=== PATIENT | female | born 1995 | race African-American/Black ===

== ENCOUNTER 2020-10-09 22:26 | Emergency (ER) | payer OTHER, SELFPAY ==
[2020-10-09 22:29] VITALS: BP 134/86; PULSE 78; RESP 18; TEMP 36.4; O2SAT 100
--- NOTE | 2020-10-09 22:56 | ED.FEMALEGU ---
HPI - Female Genitourinary General Chief complaint: Urogenital-Female Stated complaint: swollen labia Time Seen by Provider: 10/09/20 22:45 Source: patient Mode of arrival: ambulatory Limitations: no limitations History of Present Illness HPI Narrative: A 25-year-old female comes into the emergency department tonight with complaints of swollen labia bilaterally. Patient does state that they are somewhat tender and itchy. She states that it has developed over the today. It has not changed over the course of today. Patient states that she was last sexually active a couple days ago. She does state that she got some new underwear a new soap and is not sure if she may be having an allergic reaction to that. Related Data Allergies Allergy/AdvReac Type Severity Reaction Status Date / Time latex Allergy Rash Verified 10/09/20 22:33 Review of Systems Review of Systems: Narrative: CONSTITUTIONAL: Denies fever, chills, or sweats. EYES: Denies visual changes, redness, or discharge. ENT: Denies rhinorrhea, congestion, sore throat, or otalgia. CARDIOVASCULAR: Denies chest pain, palpitations, or edema. RESPIRATORY: Denies cough or dyspnea. GASTROINTESTINAL: Denies abdominal pain, nausea, vomiting, or diarrhea. GENITOURINARY: Denies dysuria or hematuria. SKIN: Denies rash or itching. MUSCULOSKELETAL: Denies back pain, joint pain, or myalgia. NEUROLOGIC: Denies headache, numbness, dizziness, or weakness. PSYCHIATRIC: Denies anxiety or depression. [facility] Social History Social History Gender identity (if verbalized by the patient): Female Exam Narrative: Exam Narrative: GENERAL: Well-appearing, well-nourished, and in no acute distress. HEAD: Normocephalic, atraumatic. EYES: PERRLA and EOMI. ENT: Nares clear, no rhinorrhea or epistaxis. Mucous membranes moist. Oropharynx without tonsillar hypertrophy exudate or other lesions. Bilateral TMs pearly stacy nonbulging NECK: Supple. No adenopathy or masses. No carotid bruits or JVD CHEST: Clear to auscultation. No respiratory distress. No wheezes rales or rhonchi HEART: Regular rate and rhythm. No murmur heard. Normal peripheral pulses. ABDOMEN: Soft, nontender, nondistended, normal active bowel sounds. : swollen labia minora, no rashes or ulcers. No masses or TTP. Internal exam deferred. Chaperoned by IRVIN Lee EXTREMITIES: Normal range of motion. No edema. SKIN: Warm, dry, no rash. NEURO: No focal deficits. Alert and oriented x3. PSYCH: Normal mood and affect. Course Vital Signs Vital signs: Vital Signs Temperature 36.4 C L 10/09/20 22: Pulse Rate 78 10/09/20 22:29 Respiratory Rate 18 10/09/20 22:29 Blood Pressure 134/86 10/09/20 22:29 Pulse Oximetry 100 10/09/20 22:29 Temperature 36.4 C L 10/09/20 22:29 Pulse Rate 78 10/09/20 22:29 Respiratory Rate 18 10/09/20 22:29 Blood Pressure 134/86 10/09/20 22:29 Pulse Oximetry 100 10/09/20 22:29 MDM - Female Genitourinary MDM Narrative Medical decision making narrative: In brief this is a 25-year-old female who [facility] with complaints of swollen labia. After interviewing and examining the patient there are no signs of a Bartholin cyst, mass, ulcers or any signs of infection. I feel the patient is likely having an allergic reaction to an unknown substance. Talking with the patient she was unable to identify any certain substance that may be causing her issues. I did recommend she start systematically avoiding different things, take Benadryl if her issues getting worse or perhaps use a steroid cream sparingly if it does start to swell and get very pruritic. Recommended she follow-up with a biscuit packer. At the time of discharge the patient timed up and set away I need the test. My suspicion is that this was the original reason for visit. Medical Records Attestation: I reviewed the patient's medical recor
[2020-10-09 23:36] LABS: Pregnancy On Board Control Positive; Urine Pregnancy Test Positive
[2020-10-09 23:41] VITALS: BP 110/65; PULSE 65; RESP 14; TEMP 36.6; O2SAT 99
== END 2020-10-09 23:43 | disposition home or self-care (01) ==
LOC: ANHED 23:27
PROVIDERS: Emergency Provider Emergency Medicine
DX: N90.89 Other specified noninflammatory disorders of vulva and perineum (principal)
CPT/HCPCS: 81025; 99284

== ENCOUNTER 2020-10-11 20:20 | Emergency (ER) | payer OTHER, SELFPAY ==
--- NOTE | ~2020-10-11 | US_ITS ---
EXAMINATION: US OB <=14 wk fetus w TV DATE: 10/11/2020 22:45 INDICATION: Vaginal spotting. Last menstrual period unsure. Recent test. TECHNIQUE: Real-time transabdominal and transvaginal obstetric ultrasound. FINDINGS: No prior studies for comparison. The uterus measures 8.3 x 5.4 x 4.5 cm. There is an intrauterine gestational sac, with pole rocío ntified. There is an intrauterine gestational sac measuring 0.6 cm corresponding to 5 week 2 day gest ation. No pole or yolk sac identified. There is free fluid in the pelvis. Right ovary is unrema rkable. Left ovary is nonvisualized. IMPRESSION: 1. Intrauterine gestational sac corresponding to a 5 week 2 day gestation (EDC 06/11/2021). No pole or yolk sac identified, possibly due to early gestational age. Recommend follow-up with serial q uantitative beta-hCG levels and ultrasound as clinically indicated. Reviewed, dictated and finalized at location A. D CARE RN IMPRESSION: 1. Intrauterine gestational sac corresponding to a 5 week 2 day gestation (EDC 06/11/2021). No pole or yolk sac identified, possibly due to early gestat ional age. Recommend follow-up with serial quantitative beta-hCG levels and ult rasound as clinically indicated.
[2020-10-11 20:22] VITALS: BP 131/86; PULSE 82; RESP 14; TEMP 36.9; O2SAT 100
--- NOTE | 2020-10-11 22:00 | ED.GENADULT ---
HPI - General Adult General Chief complaint: Urogenital-Female Stated complaint: worsening labia swelling Time Seen by Provider: 10/11/20 21:01 History of Present Illness HPI narrative: Patient is a 25-year-old female who presents ER with 2 concerns. 1st concern is discomfort along the inferior aspect of her vagina near the perineum. She was seen here couple days ago after developing swelling to her labia bilaterally. Swelling is improved but she has persistent discomfort inferiorly. No drainage. Patient also reports that today she began developing vaginal spotting. No large hemorrhage. She has not filled a vaginal pad. She is currently and has no idea how far along she is. She cannot remember her LMP. Related Data Allergies Allergy/AdvReac Type Severity Reaction Status Date / Time latex Allergy Rash Verified 10/11/20 20:53 Review of Systems Review of Systems: All systems reviewed & are unremarkable except as noted in HPI and below Constitutional: Constitutional: Denies chills, Denies fever(s) and Denies weakness Gastrointestinal: Gastrointestinal: Denies abdominal pain, Denies nausea and Denies vomiting Genitourinary: Genitourinary: Reports abnormal vaginal bleeding, Denies genital lesions, Denies dysuria, Denies pelvic pain and Denies vaginal discharge PMF Past Medical History Medical History (Updated 10/12/20 @ 00:05 by Joseph Orlando MD) Healthy female adult Surgical History Surgical History (Updated 10/11/20 @ 22:02 by Joseph Orlando MD) No history of previous surgery Social History Social History Gender identity (if verbalized by the patient): Female Exam Narrative: Exam Narrative: GENERAL: Well-appearing, well-nourished, and in no acute distress. HEAD: Normocephalic, atraumatic. CHEST: Clear to auscultation. No respiratory distress. HEART: Regular rate and rhythm. Normal peripheral pulses. ABDOMEN: Soft, nontender, nondistended. : Normal external genitalia without labial swelling or visible pustules/vesicles. No obvious discharge or bleeding on external exam. No internal vaginal exam performed. EXTREMITIES: Normal range of motion. No edema. SKIN: Warm, dry, no rash. NEURO: Alert and oriented x3. Course Course Emergency Course: Early IUP. It is recommended that patient's beta-hCG level be followed. Patient's blood type is O+ so she does not require RhoGam. Contacted Dr. Emmanuel who is on-call for patient's OB Dr. Cali. Recommends contacting the office for close follow-up. Vital Signs Vital signs: Vital Signs Temperature 98.5 F 10/11/20 20:22 Pulse Rate 82 10/11/20 20:22 Respiratory Rate 14 10/11/20 20:22 Blood Pressure 131/86 10/11/20 20:22 Pulse Oximetry 100 10/11/20 20:22 Temperature 98.5 F 10/11/20 20:22 Pulse Rate 62 10/11/20 22:46 Respiratory Rate 12 10/11/20 22:46 Blood Pressure 119/79 10/11/20 22:46 Pulse Oximetry 100 10/11/20 22:46 Medical Decision Making Vital Signs Vital Signs: Vital Signs Temperature 98.5 F 10/11/20 20:22 Pulse Rate 82 10/11/20 20:22 Respiratory Rate 14 10/11/20 20:22 Blood Pressure 131/86 10/11/20 20:22 Pulse Oximetry 100 10/11/20 20:22 Temperature 98.5 F 10/11/20 20:22 Pulse Rate 62 10/11/20 22:46 Respiratory Rate 12 10/11/20 22:46 Blood Pressure 119/79 10/11/20 22:46 Pulse Oximetry 100 10/11/20 22:46 Lab Data Result diagrams: 10/11/20 21:55 Labs: Lab Results 10/11/20 10/11/20 10/11/20 Range/Units 21:23 21:55 21:55 Sodium 141 (137-145) mmol/L Potassium 3.8 (3.4-5.0) mmol/L Chloride 108 H (98-107) mmol/L Carbon Dioxide 25 (22-30) mmol/L Anion Gap 8 (8-16) mmol/L BUN 11 (7-17) mg/dL Creatinine 0.70 (0.7-1.0) mg/dL Estim Creat Clear Calc 99 ml/min Estimated GFR > 60 (59 - ) Glucose 91 (65-105) mg/dL Calcium 9.4 (8
[2020-10-11 22:04] LABS: Add Urine Microscopic? YES; Appearance Urine Cloudy (Clear); Bacteria Urine Trace /hpf; Bilirubin Urine Negative (Negative); Blood Urine Negative (Negative); Color Urine Yellow (Yellow); Glucose Urine UA Negative (Negative); Ketones Urine Negative (Negative); Leukocyte Esterase Ur 3+ LEU/UL (Negative); Mucus Urine Few /lpf; Nitrate Urine Negative (Negative); Protein Urine 1+ mg/dL (Negative); Squamous Epithelial Cell Urine Moderate /hpf (Few); Urobilinogen Urine Negative mg/dL (<2.0); WBC Urine 16-20 /hpf
[2020-10-11 22:16] LABS: Alanine Aminotransferase 14 U/L (4-35); Albumin Level 4.3 g/dL (3.5-5.1); Alkaline Phosphatase 45 U/L (38-126); Anion Gap 8 mmol/L (8-16); Aspartate Amino Transferase 26 U/L (14-36); Bilirubin,Total 0.3 mg/dL (0.2-1.3); Blood Urea Nitrogen 11 mg/dL (7-17); Calcium 9.4 mg/dL (8.4-10.2); Carbon Dioxide 25 mmol/L (22-30); Chloride 108 mmol/L (98-107); Estimated CRCL calculation 99 ml/min; Estimated Glomerular Filt Rate > 60; Glucose 91 mg/dL (65-105); Potassium 3.8 mmol/L (3.4-5.0); Sodium 141 mmol/L (137-145)
[2020-10-11 22:46] VITALS: BP 119/79; PULSE 62; RESP 12; O2SAT 100
[2020-10-12 01:00] VITALS: BP 130/74; PULSE 100; RESP 20; O2SAT 97
[2020-10-12] MEDS: LIDOCAINE HCL 2% JELLY 30 ML TUBE 1 APPLIC MUCOUS MEM (01:03)
== END 2020-10-12 01:00 | disposition home or self-care (01) ==
PROVIDERS: Emergency Medicine Emergency Medical Services; Emergency Provider Emergency Medicine
DX: O20.9 Hemorrhage in early pregnancy, unspecified (principal); O23.41 Unspecified infection of urinary tract in pregnancy, first trimester; O26.891 Other specified pregnancy related conditions, first trimester; R10.2 Pelvic and perineal pain; Z3A.01 Less than 8 weeks gestation of pregnancy
CPT/HCPCS: 36415; 76801; 76817; 80053; 81001; 81025; 84702; 86850; 86900; 86901; 87086; 87088; 99284; A9270

== ENCOUNTER 2021-04-24 18:45 | Observation (INO) | payer OTHER, SELFPAY ==
[2021-04-24] VITALS (19 sets, daily range): BP systolic 91–113; BP diastolic 44–65; PULSE 85–105; TEMP 38.3; O2SAT 86–100
--- NOTE | 2021-04-24 18:45 | PC.NURSE ---
This patient, Arianna Rodriguez, admitted to the OB room OB Post 115 for observation. Patient/family oriented to hospital policies and general routines including ID bracelet, bed and alarms, visiting hours, pain management, procedures, bathroom and other care routines, personal items, smoking policy, room service/diet, and visiting hours. Patient/Family are encouraged to report perceived risks to care and to ask questions if they do not understand what they are told or what they should do.
[2021-04-24] MEDS: ACETAMINOPHEN 500 MG TABLET 1000 MG PO (19:40)
[2021-04-24] MEDS: LACTATED RINGERS 1,000 ML 999 ML IV CONT (19:42)
--- NOTE | 2021-04-24 20:00 | PC.NURSE ---
Pt to Ob from ER. Pt presented to ER with family for Covid symptoms Pt has had fever, cough and body aches since April 21 and boyfriend had exposure. Pt is 33 weeks gestation. Pt states her MD is Dr. José Miguel Cali at [facility]. States she has pelvic pressure since symptoms onset on the . Pt states she has lump on chest that has been increasing in size for past 2 years. See [facility] documentation. Pt has frequent moist cough. O2 sat 100%.
--- NOTE | 2021-04-24 23:22 | PC.NURSE ---
Pt to ER for further evaluation and care. SEE ER record. Pt given labor precautions and pt is to follow up with her MD at [facility]. Dr. Strong shipbuilding draftsperson and walk in MD notified on admission and discharge order given.
--- NOTE | 2021-04-29 08:00 | PM.OBTRLD ---
OB - Triage/Final Diagnosis Visit Information Comments/Additional reasons for admission: I have assessed the risk for this patient, Arianna Rodriguez, and determined that she would benefit from observation care. Final Diagnosis (1) Pelvic pressure in : Code(s): O26.899 - Other specified related conditions, unspecified trimester; R10.2 - Pelvic and perineal pain Status: Acute
== END 2021-04-24 21:30 | disposition other institution (70) ==
PROVIDERS: Admitting Provider Obstetrics & Gynecology; Visit Provider Obstetrics & Gynecology
DX: O26.899 Other specified pregnancy related conditions, unspecified trimester (principal); R10.2 Pelvic and perineal pain; Z3A.00 Weeks of gestation of pregnancy not specified
CPT/HCPCS: A9270; G0378; G0379; J7120

== ENCOUNTER 2021-04-24 21:07 | Emergency (ER) | payer OTHER, SELFPAY ==
[2021-04-24 21:17] VITALS: BP 99/53; PULSE 87; RESP 20; TEMP 37; O2SAT 100; O2SAT 99
--- NOTE | 2021-04-24 21:38 | ED.GENADULT ---
HPI - General Adult General Chief complaint: Upper Respiratory Infection Stated complaint: Covid Sx Time Seen by Provider: 04/24/21 21:29 History of Present Illness HPI narrative: Patient is a 26-year-old female presents to emergency department with chief complaint of cough fever and body aches. Patient reports that she is currently patient was seen over at OB and cleared from a OB perspective she received fluids and Tylenol patient reports she is had COVID-19 exposure and reports that she would like to be tested for COVID-19 incidentally the patient also reports that she is out of Tylenol and request a prescription for Tylenol. The after she patient states that his blood pressure she has not had a productive cough with this reports no hypoxia. Reports it is worse with cough and improved with rest Related Data Allergies Allergy/AdvReac Type Severity Reaction Status Date / Time latex Allergy Rash Verified 04/24/21 21:22 Review of Systems Review of Systems: A 10 system review of systems was completed on the patient and is negative except for what is stated in the HPI. Nursing and ancillary documentation was reviewed. [facility] Past Medical History Medical History Healthy female adult Surgical History Surgical History No history of previous surgery Social History Social History Gender identity (if verbalized by the patient): Female Exam Narrative: GENERAL: Well-appearing, well-nourished, and in no acute distress. HEAD: Normocephalic, atraumatic. EYES: PERRLA and EOMI. ENT: Nares clear, no rhinorrhea or epistaxis. Mucous membranes moist. NECK: Supple. CHEST: Clear to auscultation. No respiratory distress. There is a soft tissue mass over the anterior chest wall this is in the anterior medial aspect of the right breast. HEART: Regular rate and rhythm. No murmur heard. Normal peripheral pulses. ABDOMEN: Soft, nontender, nondistended, normal active bowel sounds. EXTREMITIES: Normal range of motion. No edema. SKIN: Warm, dry, no rash. NEURO: No focal deficits. Alert and oriented x3. PSYCH: Normal mood and affect. Course Course Emergency Course: The patient reports that the breast mass has been there for several years and reports that over the last year and has changed somewhat. The patient was advised to follow-up with either her primary care physician or her PLAYERS ASSISTANT for further evaluation of this. Vital Signs Vital signs: Vital Signs Temperature 37.0 C 04/24/21 21:17 Pulse Rate 87 04/24/21 21:17 Respiratory Rate 20 04/24/21 21:17 Blood Pressure 99/53 L 04/24/21 21:17 Pulse Oximetry 99 04/24/21 21:17 Temperature 37.0 C 04/24/21 21:17 Pulse Rate 87 04/24/21 21:17 Respiratory Rate 20 04/24/21 21:17 Blood Pressure 99/53 L 04/24/21 21:17 Pulse Oximetry 100 04/24/21 21:17 Medical Decision Making Vital Signs Vital Signs: Vital Signs Temperature 37.0 C 04/24/21 21:17 Pulse Rate 87 04/24/21 21:17 Respiratory Rate 20 04/24/21 21:17 Blood Pressure 99/53 L 04/24/21 21:17 Pulse Oximetry 99 04/24/21 21:17 Temperature 37.0 C 04/24/21 21:17 Pulse Rate 87 04/24/21 21:17 Respiratory Rate 20 04/24/21 21:17 Blood Pressure 99/53 L 04/24/21 21:17 Pulse Oximetry 100 04/24/21 21:17 Discharge Plan Discharge Clinical Impression: Upper respiratory infection Qualifiers: URI type: unspecified viral URI Qualified Code(s): J06.9 - Acute upper respiratory infection, unspecified Patient Disposition: Home, Self-Care Condition: Stable Instructions: Antibiotic Form, Upper Respiratory Infection (ED) Additional Instructions: Please self quarantine until you receive the results of your Covid test. Please follow-up with your PLAYERS ASSISTANT Prescriptions: New acetami
[2021-04-25 18:30] LABS: SARS-CoV-2 RNA PCR Positive
== END 2021-04-24 22:01 | disposition home or self-care (01) ==
LOC: ANHED 21:46
PROVIDERS: Emergency Provider Emergency Medicine
DX: O98.519 Other viral diseases complicating pregnancy, unspecified trimester (principal); U07.1 COVID-19; Z3A.00 Weeks of gestation of pregnancy not specified
CPT/HCPCS: 99283; C9803; U0003; U0005

== ENCOUNTER 2023-04-09 09:10 | Emergency (ER) | payer OTHER, SELFPAY ==
--- NOTE | ~2023-04-09 | XR_ITS ---
EXAMINATION: XR chest 2V DATE: 04/09/2023 09:42 INDICATION: Medial chest pain radiating to the back TECHNIQUE: PA and lateral views of the chest were obtained. COMPARISON: None FINDINGS: The lungs are clear with no focal airspace opacities, pulmonary edema, pleural effusion or pneumothor ax. The cardiomediastinal silhouette is normal. Mild thoracic spondylosis with minimal anterior wedgi ng of a couple mid thoracic vertebral bodies. IMPRESSION: 1. No acute cardiopulmonary disease. Reviewed, dictated and finalized at location B.
--- NOTE | 2023-04-09 09:13 | ECG_ITS ---
Measurements Intervals Coyle Rate: 61 P: 63 IL: 151 QRS: 61 QRSD: 83 T: 38 QT: 377 QTc: 381 Interpretive Statements SINUS RHYTHM WITH SINUS ARRHYTHMIA BASELINE WANDER- AVL, AVF NORMAL ECG NO PREVIOUS ECG AVAILABLE FOR COMPARISON Electronically Signed On 04-09-2023 9:42:14 CDT by Dale Herron D.O.
[2023-04-09 09:14] VITALS: BP 139/79; PULSE 68; RESP 16; TEMP 36.8; O2SAT 99
[2023-04-09 09:27] VITALS: O2SAT 99
[2023-04-09 09:33] LABS: Basophils Percent Auto 0.4 % (0.2-1.2); Eosinophils Absolute Auto 0.2 K/mm3 (0-0.3); Eosinophils Percent Auto 3.1 % (0-4.4); Hematocrit 37.6 % (37.0-47.0); Hemoglobin 12.7 g/dL (12.0-15.0); Immature Granulocyte Absolute 0.01 K/mm3 (0.00-0.031); Immature Granulocyte Percent A 0.2 % (0-0.5); Lymphocytes Absolute Auto 1.12 K/mm3 (0.9-3.2); Lymphocytes Percent Auto 21.5 % (18.3-44.2); Mean Corpuscular HGB Conc 33.8 g/dl (32-36); Mean Corpuscular Hemoglobin 29.3 pg (26-34); Mean Corpuscular Volume 86.6 fl (80-100); Mean Platelet Volume 10.4 fl (7.4-10.4); Monocytes Absolute Auto 0.3 K/mm3 (0.1-0.6); Monocytes Percent Auto 5.9 % (2.6-8.5); Neutrophils Absolute Auto 3.6 K/mm3 (1.3-6.7); Neutrophils Percent Auto 68.9 % (45.5-73.1); Platelet Count Result 207 k/mm3 (150-375); Red Blood Count 4.34 M/mm3 (4.2-5.4); Red Cell Distribution Width 13.7 % (11.5-14.5); White Blood Count 5.2 K/mm3 (4.5-10.0)
--- NOTE | 2023-04-09 09:34 | ED.CHESTPAIN ---
HPI - Chest Pain General Chief Complaint: Chest Pain Stated Complaint: CHEST/BACK PAIN X2D Time Seen by Provider: 04/09/23 09:16 History of Present Illness HPI narrative: 27-year-old female presents to the emergency department for substernal chest pain x2 days. Patient states the pain is sharp in nature and occurs intermittently, lasting less than 1 minute at a time but occurs multiple times a day. She states she thought it was heartburn at first, took some Tums but did not have relief. States she has not been eating much because she feels that it will aggravate the pain. States that time the pain radiates to her right mid back, but the chest pain and back pain do not always occur simultaneously. Reports the back pain is worse with right lateral flexion. Patient states she is concerned the back pain is due to her kidneys. She reports that she has been working out at home recently. She denies fever, cough or congestion, shortness of breath, dysuria or hematuria. She is unsure of her LMP, she is on Depo. Denies history of VTE, no recent surgeries or hospitalizations, denies estrogen use. Related Data Allergies Allergy/AdvReac Type Severity Reaction Status Date / Time latex Allergy Rash Verified 04/24/21 21:22 Review of Systems Review of Systems: CONSTITUTIONAL: Denies fever, chills EYES: Denies visual changes, redness, or discharge. ENT: Denies rhinorrhea, congestion, sore throat, or otalgia. CARDIOVASCULAR: See HPI RESPIRATORY: Denies cough or dyspnea. GASTROINTESTINAL: Denies abdominal pain, nausea, vomiting, or diarrhea. GENITOURINARY: Denies dysuria or hematuria. SKIN: Denies rash or itching. MUSCULOSKELETAL: See HPI NEUROLOGIC: Denies headache, numbness, dizziness, or weakness. PSYCHIATRIC: Denies anxiety or depression. [facility] Past Medical History Medical History Healthy female adult Surgical History Surgical History No history of previous surgery Social History Social History Gender identity (if verbalized by the patient): Female Exam Narrative: GENERAL: Well-appearing, in no acute distress. Patient is resting comfortably in exam bed. She is pleasant and conversational. HEAD: Normocephalic EYES: PERRLA ENT: Nares clear. Mucous membranes moist. Oropharynx without tonsillar hypertrophy exudate or other lesions. NECK: Supple. CHEST: No respiratory distress. Clear to auscultation, no adventitious breath sounds. No tenderness to chest wall. HEART: Regular rate and rhythm. No murmur heard. Normal peripheral pulses. ABDOMEN: Normal active bowel sounds. Abdomen soft with mild tenderness to the epigastrium just beneath the xiphoid process. No rebound, guarding or rigidity. No CVA tenderness. BACK: No tenderness to lumbar or thoracic spine. Tenderness to the right paraspinous muscles, right lateral flexion aggravates the right paraspinous back pain. EXTREMITIES: Normal range of motion. No edema. SKIN: Warm, dry, no rash. NEURO: No focal deficits. Alert and oriented x3. PSYCH: Normal mood and affect. Course Vital Signs Vital signs: Vital Signs Temperature 98.2 F 04/09/23 09:14 Pulse Rate 68 04/09/23 09:14 Respiratory Rate 16 04/09/23 09:14 Blood Pressure 139/79 04/09/23 09:14 Pulse Oximetry 99 04/09/23 09:14 Oxygen Delivery Room Air 04/09/23 09:14 Temperature 98.2 F 04/09/23 09:14 Pulse Rate 64 04/09/23 12:08 Respiratory Rate 15 04/09/23 12:08 Blood Pressure 124/92 H 04/09/23 12:08 Pulse Oximetry 100 04/09/23 12:08 Oxygen Delivery Room Air 04/09/23 09:27 MDM - Chest Pain MDM Narrative Medical decision making narrative: 27-year-old female presents to the emergency department for substernal chest pain x2 days, described as sharp, lasts less than 1 minute and occurs multiple t
[2023-04-09 09:43] LABS: Alanine Aminotransferase 22 U/L (6-35); Albumin Level 4.3 g/dL (3.5-5.1); Alkaline Phosphatase 48 U/L (38-126); Anion Gap 6 mmol/L (8-16); Aspartate Amino Transferase 28 U/L (14-36); Bilirubin,Total 0.4 mg/dL (0.2-1.3); Blood Urea Nitrogen 12 mg/dL (7-17); Carbon Dioxide 21 mmol/L (22-30); Chloride 110 mmol/L (98-107); Estimated CRCL calculation 100 ml/min; Estimated Glomerular Filt Rate > 60; Glucose 101 mg/dL (65-110); Lipase 61 U/L (23-300); Potassium 3.8 mmol/L (3.4-5.0); Sodium 137 mmol/L (137-145)
[2023-04-09 09:46] LABS: Prothrombin Time 13.2 Seconds (11.1-14.7)
[2023-04-09 09:47] LABS: Partial Thromboplastin Time 26.6 SECONDS (22.3-36.8)
[2023-04-09 09:55] LABS: Troponin I < 0.012 ng/mL (0.000-0.034)
[2023-04-09 10:40] LABS: Appearance Urine Cloudy (Clear); Bacteria Urine None Seen /hpf; Bilirubin Urine Negative (Negative); Blood Urine Negative (Negative); Color Urine Yellow (Yellow); Glucose Urine UA Negative (Negative); Ketones Urine Negative (Negative); Leukocyte Esterase Ur 1+ LEU/UL (Negative); Nitrate Urine Negative (Negative); Non Pathogenic Casts 0-2; Protein Urine Negative (Negative); RBC Urine 0-2 /hpf (0-2); Specific Grav Ur 1.028 (1.001-1.035); Squamous Epithelial Cell Urine None seen /hpf (Few); WBC Urine 21-50 /hpf
[2023-04-09] MEDS: ACETAMINOPHEN 500 MG TABLET 1000 MG PO (10:46)
[2023-04-09] MEDS: CYCLOBENZAPRINE HCL 10 MG TABLET PO (10:46)
[2023-04-09] MEDS: SODIUM CHLORIDE 0.9% IV 1,000 ML 999 ML IV CONT (10:47)
[2023-04-09] MEDS: PANTOPRAZOLE SODIUM IV 40 MG VIAL IV PUSH (10:47)
[2023-04-09 10:48] LABS: Add Urine Microscopic? YES
[2023-04-09 12:08] VITALS: BP 124/92; PULSE 64; RESP 15; O2SAT 100
[2023-04-09 12:30] LABS: Troponin I < 0.012 ng/mL (0.000-0.034)
== END 2023-04-09 13:00 | disposition home or self-care (01) ==
PROVIDERS: Emergency Medicine; Emergency Provider Physician Assistant
DX: R07.89 Other chest pain (principal); S39.012A Strain of muscle, fascia and tendon of lower back, initial encounter; R82.81 Pyuria; X58.XXXA Exposure to other specified factors, initial encounter
CPT/HCPCS: 36415; 71046; 80053; 81001; 81025; 83690; 84484; 85025; 85610; 85730; 87086; 93005; 96361; 96374; 99284; A9270; C9113; J7030